=== PATIENT | female | born 1995 | race Caucasian/White ===

== ENCOUNTER 2023-03-13 15:36 | Observation (INO) | payer OTHER, SELFPAY ==
--- NOTE | 2023-03-13 16:27 | P.HPOB_ITS ---
OB HPI Date/Time Date of admission: 03/13/23 Date Patient Seen: 03/13/23 Time Patient Seen: 16:00 History of Present Condition Chief complaint: OB CHECK : 1 Para: 0 Estimated Date of Delivery: 03/22/23 Estimated Gestational Age (weeks): 38w5d Narrative: Janny Zafar is a , 28 year old female at 38w5d by 2 early ultrasounds. She reported PROM, clear fluid at 0520 today. Contractions started at 1315 and she called shortly before 1500 to report that they were q 5 min x 60 seconds. She is here today accompanied by her teacher specialist. Her mom is on her way up from [place], and her is deployed, hoping he'll arrive by Monday AM. Janny reports that contractions are getting more intense. Well supported by her teacher specialistMarley. Reports that fluid is copious and continues to be clear. Indications Other reason(s) for admission: PROM History of Present care: good care, initiated at week # (7), number of visits (14) and pounds weight gain (47) Dating criteria: based on 1st trimester US only (2 1st trimester ultrasound confirmed GARCIA) Ultrasounds: normal 1st trimester US and normal mid trimester US Obstetrical complications: none Medical complications: none Preadmission Labs Blood type: 0 (-) negative -: Antibody screen: negative, Cystic fibrosis screen: negative, GBS status: negative, HBsAG: negative, HIV: negative and RPR/VDLR: negative -: Chlamydia screen: not detected and Gonorrhea screen: not detected -: Rubella: immune and Varicella: immune HCT: 32.2 HCAB: negative PAP: Normal (01/2022) Quad screen: Normal Cell-free DNA: Negative 1 hr GTT: 117 Prior (ies) History: no prior pregnancies Evaluation Evaluation Baseline heart rate: 150 Variability: Moderate (11-25) monitor accelerations: Present Monitor Decelerations: Absent Contraction Frequency (minutes): 2 (coupling with breaks up to 5 minutes) Uterine Contraction Intensity: Moderate Category of Tracing: Reactive Dilation (cm): 2 Effacement (%): 70 Dilation: 1-2 cm Effacement: 60-70% station: -2 Position of cervix: anterior Consistency: soft Fu score: 8 Non-invasive Membranes Rupture Test: positive Comments: Grossly ruptured and nitrazine positive in [facility] [place] 03/13/23 AM. PFSH Medical History (Updated 03/13/23 @ 16:49 by Tanya Bowens CNM, ARNP) Depression with anxiety Surgical History (Updated 03/13/23 @ 16:49 by Tanya Bowens CNM, [place]) H/O bilateral breast reduction surgery Family History (Updated 03/13/23 @ 17:48 by Tanya Bowens CNM, ARNP) Mother Cancer Depression Grandfather Cancer Father Heart disease Grandmother Depression Social History (Updated 03/13/23 @ 17:50 by Tanya Bowens CNM, [place]) marital status: details: is [employer] number of children: 0 household members: spouse lives independently: Yes caregiver/support person: No education level: master's degree 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[employer] Smoking Status: Never smoker alcohol intake: former substance use type: does not use additional social history: Reports that she feels safe with her Meds Home Medications and Allergies Allergies Allergy/AdvReac Type Severity Reaction Status Date / Time seasonal allergies Allergy Mild Uncoded 03/13/23 17:51 [email or web address] Allergy Uncoded 03/13/23 17:51 Review of Systems Review of Systems Narrative: all negative except as mentioned in HPI OB Exam Vital signs Blood Pressure: 117/67 Pulse Rate: 55 Respiratory Rate: 18 Temperature: 36.8 F HENMT Head: normal to inspection and normocephalic Eyes General: appearance normal, both eyes and all related structures Resp Effort & Inspection: normal respiratory effort, able to speak in complete sentences and symmetric chest movement Auscultation: clear to auscultation bilaterally Cardio Rate: regular rate Rhythm: regular rhythm Heart Sounds: S1 normal and S2 normal Extremities Lower extremity: Yes normal to inspection DTR's: Rt Patellar: 1+ and Lt Patellar: 1+ Presentation: vertex Estimated Weight (lbs): 7 Amniotic Fluid: clear Other: SCE: 2/70/-2/posterior/soft Assessment and Plan Assessment and Plan Assessment and Plan narrative: at 38w5d Early labor GBS negative PROM x 12hrs Rh negative NST reactive Hx of breast reduction Afebrile Plan: Labor at home with teacher specialist and mother until contractions are more regular and intense then return to hospital Pain medication offered and accepted. Morphine 10 mg and vistaril 50 mg given together IM. Discharge home for sleep and RTC tonight with active labor. Time Spent with Patient Total time spent with greater than 50% in coordination of care (as documented) at patient's floor/unit and/or counseling patient:: Greater than 35 minutes
[2023-03-13 18:00] VITALS: BP 117/67; PULSE 55; RESP 18; TEMP 2.7; TEMP 36.8
[2023-03-13] MEDS: hydrOXYzine 50 MG/ML INJ IM (18:41)
[2023-03-13] MEDS: MORPHINE 10 MG/ML INJ IM (18:41)
== END 2023-03-13 19:05 | disposition home or self-care (01) ==
PROVIDERS: Admitting Provider Nurse Practitioner Obstetrics & Gynecology; Referring Provider Advanced Practice Midwife; Visit Provider Advanced Practice Midwife
DX: O42.92 Full-term premature rupture of membranes, unspecified as to length of time between rupture and onset of labor (principal); Z3A.38 38 weeks gestation of pregnancy
CPT/HCPCS: 59025; 96372; G0378; G0379; J2270; J3410

== ENCOUNTER 2023-03-13 21:40 | Inpatient (IN) | payer OTHER, SELFPAY ==
--- NOTE | 2023-03-13 22:06 | PM.OBHP.IH.1 ---
OB HPI History of Present Condition Chief complaint: Estimated Gestational Age (weeks): 38w5d : 1 Para: 0 Narrative: History of Present Condition Chief complaint: OB CHECK : 1 Para: 0 Estimated Date of Delivery: 03/22/23 Estimated Gestational Age (weeks): 38w5d Narrative: Janny Zafar is a , 28 year old female at 38w5d by 2 early ultrasounds. She reported PROM, clear fluid at 0520 today. Contractions started at 1315 and she called shortly before 1500 to report that they were q 5 min x 60 seconds.? She arrived at the hospital for triage at 16:00 accompanied by her galley stripper. Reported that fluid was copious and continues to be clear. Her mom arrived shortly after. Her is deployed, hoping he'll arrive by Monday AM. Janny is back after going home with Morphine and hydroxyzine, was unable to sleep but got some rest. Reports that contractions are getting more intense, having to concentrate and vocalize to cope, requesting epidural. She feels like she has to pee all the time, but nothing comes out. Well supported by her mother. Her galley stripper, Marley, is on her way. Indications Other reason(s) for admission: PROM care: good care, initiated at week # (7), number of visits (14) and pounds weight gain (47) Dating criteria OB: based on 1st trimester US only Ultrasounds: normal 1st trimester US and normal mid trimester US Obstetrical complications: none Medical complications OB: none External History Prior Pregnancies: No prior pregnancies : 1 Para: 0 Estimated Date of Delivery: 03/22/23 Indications Other reason(s) for admission: PROM with spontaneous labor Preadmission Labs Last OB Lab Results: Blood Type Pending 03/13/23 22:00 Antibody Screen Pending 03/13/23 22:00 Hematocrit 30.8 % (36-46) L 03/13/23 22:00 Hemoglobin 10.4 g/dL (12.0-16.0) L 03/13/23 22:00 Glucose Tolerance Testin hr (117) -: Chlamydia screen: negative and Gonorrhea screen: negative -: PAP smear: Normal Genetic Screens: Quad screen: Normal and Cell-free DNA: Normal External Labs Narrative: Preadmission Labs Blood type: 0 (-) negative -: Antibody screen: negative, Cystic fibrosis screen: negative, GBS status: negative, HBsAG: negative, HIV: negative and RPR/VDLR: negative -: Chlamydia screen: not detected and Gonorrhea screen: not detected -: Rubella: immune and Varicella: immune HCT: 32.2 HCAB: negative PAP: Normal (01/2022) Quad screen: Normal Cell-free DNA: Negative 1 hr GTT: 117 Evaluation Evaluation Baseline heart rate: 135 Variability: Moderate (11-25) monitor accelerations: Absent Monitor Decelerations: Variable Uterine Contraction Intensity: Moderate Status: Category l Dilation (cm): 7 Effacement (%): 90 Dilation: >/=5 cm Effacement: >/=80% station: -1 Position of cervix: mid Consistency: soft Fu score: 11 PFSH Medical History (Updated 03/13/23 @ 16:49 by Tanya Bowens CNM, [place]) Depression with anxiety Surgical History H/O bilateral breast reduction surgery Family History Mother Cancer Depression Grandfather Cancer Father Heart disease Grandmother Depression Social History marital status: details: is [employer] number of children: 0 household members: spouse lives independently: Yes caregiver/support person: No education level: master's degree occupational status: 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: [employer] Smoking Status: Never smoker alcohol intake: former substance use type: does not use additional social history: Reports that she feels safe with her Meds Home Medications and Allergies Allergies Allergy/AdvReac Type Severity Reaction Status Date / Time seasonal allergies Allergy Mild Uncoded 03/13/23 17:51 [email or web address] Allergy Uncoded 03/13/23 17:51 Review of Systems Review of Systems Narrative: negative accept what was mentioned above OB Exam Vital signs Blood Pressure: 123/77 Pulse Rate: 85 Respiratory Rate: 18 Temperature: 97.9 F Objective Labs 03/13/23 22:00 Assessment and Plan Assessment and Plan Assessment and Plan narrative: Gestation 38w5d PROM with spontaneous labor Active labor pattern GBS negative Rh negative Coping well Plan: Admit to labor and delivery Admit labs Epidural LILIA Continuous EFM with epidural Cervical exam after comfortable with epidural Support normal course of labor with comfort measure and position changes Anticipate NSVB
[2023-03-13] MEDS: FENT 2MCG/ML BUPIV 0.125% EPI 200 MCG/100 ML PLAST..BAG 12 MCG EPIDURAL (22:08)
[2023-03-13 22:22] LABS: Add Manual Diff / Slide Review NO; Basophils Absolute Auto 100 /uL (0-100); Basophils Percent Auto 0.7 % (0-2); Eosinophils Absolute Auto 0 /uL (0-450); Hematocrit 30.8 % (36-46); Hemoglobin 10.4 g/dL (12.0-16.0); Lymphocytes Absolute Auto 1200 /uL (1100-4500); Lymphocytes Percent Auto 7.2 % (25-40); Mean Corpuscular HGB Conc 33.8 % (30-36); Mean Corpuscular Hemoglobin 27.7 PG (26-34); Mean Corpuscular Volume 81.8 fL (80-100); Monocytes Absolute Auto 700 /uL (0-900); Neutrophils Absolute Auto 14500 /uL (1500-7000); Neutrophils Percent Auto 88.1 % (50-75); Platelet Count 209 X10^3/uL (150-400); Red Blood Cell Count 3.77 X10^6/uL (4.0-5.2); Red Cell Distribution Width 13.8 % (11.6-14.8); White Blood Cell Count 16.5 X10^3/uL (4.5-11.0)
[2023-03-13 22:39] VITALS: BP 123/77; PULSE 85; RESP 18; TEMP 36.6
[2023-03-13] MEDS: ePHEDrine 50 MG/ML VIAL 10 MG IV (23:01)
[2023-03-14] MEDS: ONDANSETRON 4 MG/2 ML INJ IV (02:11)
[2023-03-14] MEDS: FENT 2MCG/ML BUPIV 0.125% EPI 200 MCG/100 ML PLAST..BAG 12 MCG EPIDURAL ×2 (03:25→08:11)
--- NOTE | 2023-03-14 04:29 | PM.OBPNLAB ---
Date/Time Date Patient Seen: 03/14/23 Time Patient Seen: 04:00 Pain Control Pain control: epidural Comments: Janny was able to get some sleep. Feeling more numb on her right side. Comfortable, able to sleep, vaginal/rectal pressure building Pelvic Exam Dilation (cm): 9.5 Effacement (%): 90 station: -1 Amniotic membrane status: Ruptured Contractions Date/Time contractions began: 03/13/23 at 1330 Contractions on admission: regular Monitor mode: External Contraction frequency (min): 2 Contraction duration (min): 1 Contraction pattern: Regular Contraction intensity: Moderate Status status: Category l Heart Rate Baseline: 150 Monitor Accelerations: Present Monitor Decelerations: Variable Monitor Variability: Moderate Assessment and Plan Assessment: active labor Plan: continuous present management Comments: 38w6d Active labor Pain well managed FHR: Cat I Moved to hands and knees SCE as needed Labor down PRN Anticipate
--- NOTE | 2023-03-14 05:50 | PM.OBPNLAB ---
Date/Time Date Patient Seen: 03/14/23 Time Patient Seen: 05:51 Pain Control Pain control: epidural Comments: Temp 99.1 oral and 100.9 axillary Patient feels hot to touch on skin and during SCE BP 100/56 SpO2 100% Pelvic Exam Dilation (cm): 9.5 Effacement (%): 90 station: -1 Amniotic membrane status: Ruptured Comments: Urine brandi colored Contractions Date/Time contractions began: 03/13/23 1315 [id number] PROM at 0520, clear fluid Monitor mode: External Contraction frequency (min): 2 Contraction pattern: Regular Contraction intensity: Moderate Status status: Category l Heart Rate Baseline: 185 Monitor Accelerations: Present Monitor Decelerations: Absent Monitor Variability: Moderate Assessment and Plan Assessment: active labor Plan: other Comments: at 38w6d PROM x 24 hours, clear fluid Elevated temperature FHR Cat 2 GBS neg Plan: CBC with diff ordered to do STAT Wait 30 min and repeat temp both axillary and oral If still elevated, and WBC elevated, start antibiotics and acetaminophen Position changes and fluid bolus
[2023-03-14 05:59] LABS: Add Manual Diff / Slide Review NO; Basophils Absolute Auto 100 /uL (0-100); Basophils Percent Auto 0.7 % (0-2); Eosinophils Absolute Auto 0 /uL (0-450); Eosinophils Percent Auto 0.1 % (2-4); Hematocrit 26.7 % (36-46); Hemoglobin 8.8 g/dL (12.0-16.0); Lymphocytes Absolute Auto 1300 /uL (1100-4500); Lymphocytes Percent Auto 8.1 % (25-40); Mean Corpuscular HGB Conc 32.9 % (30-36); Mean Corpuscular Hemoglobin 27.5 PG (26-34); Mean Corpuscular Volume 83.5 fL (80-100); Monocytes Absolute Auto 1200 /uL (0-900); Neutrophils Absolute Auto 13800 /uL (1500-7000); Neutrophils Percent Auto 84.1 % (50-75); Platelet Count 180 X10^3/uL (150-400); Red Cell Distribution Width 13.8 % (11.6-14.8); White Blood Cell Count 16.4 X10^3/uL (4.5-11.0)
[2023-03-14] MEDS: ACETAMINOPHEN IV 1,000 MG/100 ML VIAL 400 MG IV (06:29)
--- NOTE | 2023-03-14 06:45 | PM.OBPNLAB ---
Date/Time Date Patient Seen: 03/14/23 Time Patient Seen: 06:45 Pain Control Comments: Epidural not working as well; feeling more L sided pain now. Pelvic Exam Effacement (%): 90 station: -1 Amniotic membrane status: Ruptured Comments: Labs: WBC on admission 16 and repeated at 0550 16. When compared to WBC, these are elevated. Contractions Monitor mode: External Contraction frequency (min): 2 Contraction pattern: Regular Contraction intensity: Moderate Status status: Category l Heart Rate Baseline: 160 Monitor Accelerations: Present Monitor Decelerations: Absent Monitor Variability: Moderate Assessment and Plan Assessment: active labor Plan: begin patient augmentation Comments: at 38w6d in active labor Intraamnionic infection GBS neg Plan: Begin low dose pitocin Start antibiotics to treat IAI after discussion with patient of r/b/a Epidural bolus Recheck cervix PRN.
[2023-03-14 06:56] VITALS: BP 124/85
[2023-03-14] MEDS: AMPICILLIN 2,000 MG in SODIUM CHLORIDE 0.9% 100 ML 200 MG IV (07:19)
[2023-03-14] MEDS: GENTAMICIN 150 MG in SODIUM CHLORIDE 0.9% 100 ML 103.75 MG IV (08:08)
[2023-03-14] MEDS: OXYTOCIN PREMIX 30 UNIT/500 ML PLAST..BAG IV (08:34)
--- NOTE | 2023-03-14 09:38 | PM.OBPNLAB ---
Date/Time Date Patient Seen: 03/14/23 Time Patient Seen: 09:00 Pain Control Pain control: epidural Comments: Comfortable with epidural. Antibiotics for IAI completed approx 0900 (amp completed approx 0800, gent approx 0900). Pelvic Exam Dilation (cm): 9 Effacement (%): 90 station: -1 Amniotic membrane status: Ruptured Comments: Maternal vital signs: BP 92/53 HR 67 SpO2 93 Contractions Monitor mode: External Pitocin rate (mU/min): 4 Contraction frequency (min): 2 Contraction duration (min): 1 Contraction pattern: Regular Contraction intensity: Moderate Status status: Category ll Heart Rate Baseline: 140 Monitor Accelerations: Present Monitor Decelerations: Prolonged Monitor Variability: Moderate Comments: Acceleration at 0904 during exam led to 3.5 min deceleration that started at 0906 with yariel of 60 before returning to >100 and then back to baseline at 0915. Moderate variability and accelerations from 0915 until 0936 when FHR returned to 145 baseline. Variability > 5 beats per minute. Assessment and Plan Assessment: other Comments: Assessment: at 38w6d Prolonged active phase of labor IAI GBS neg O negative blood type Plan: Position changes and fluid bolus with deceleration Continue pitocin titration as tolerated IUPC applied to monitor contractions Recheck cervix PRN
[2023-03-14] MEDS: fentaNYL 100 MCG/2 ML INJ (12:55)
[2023-03-14] MEDS: METHYLERGONOVINE 0.2 MG/ML VIAL IM (13:05)
--- NOTE | 2023-03-14 13:35 | P.PCNOB_ITS ---
Labor & Delivery Route of delivery: L&D Laceration Description: Perineal - 1st Degree Quantitative Blood Loss: 725 Anesthesia Type: Epidural Narrative: Janny Zafar is a G1 now P1, 28 year old female at 38w6d by 2 early ultrasounds. She reported PROM, clear fluid at 0520 03/13/23. Contractions started at 1315 and she called shortly before 1500 to report that they were q 5 min x 60 seconds.?Her labor was assessed, she was sent home to rest with morphine and hydroxyzine. Admitted for labor 03/13/23 at 22:00 with request for epidural analgesic, which was placed at 23:00. Well supported by her can reconditioner, Marley, and her mother Macey. Her is deployed, hoping he'll arrive this evening. Labor progressed well until anterior lip was present and IAI diagnosed and treated with antibiotics. Complete dilation was achieved with position changes, pitocin augmentation and manual reduction of anterior lip. Janny felt lots of pressure and began pushing on her own at 10:00 and started to push effectively with coaching at 10:30 for an average 2nd stage. FHR was Cat II throughout 2nd stage. NSVB of baby at 12:15, shoulders delivered with firm traction through a single loose nuchal cord. Baby was placed on maternal abdomen when Janny was pawan dy to receive him skin to skin, W/D/S for resuscitation. Apgars 4/8/9. 3 vessel cord clamped and cut by luca at 90 seconds and baby taken to warmer for assessment of respiratory effort. Bulb suction, blow by oxygen and W/D/S was utilized. Cord blood collected for blood typing. Baby returned to maternal chest, skin to skin, after five minutes with good oxygenation and tone and no increased WOB. Placenta did not deliver spontaneously after 30 minutes, strong maternal effort, and active management. Her epidural was turned back on, 100mg of Fentaynl was administered, and the placenta was manually extracted by CNM at 50min and appeared to be intact with succenturiate lobe. Antibiotics not given for manual extraction of placenta d/t antibiotics previously administered 4 hours prior for IAI. Fundus firm, midline at U. Perineum inspected and 1st degree laceration was assessed, hemostatic and well approximated, no need for repair. Blood loss measured is 725 mL. Mom and baby left stable and was being initiated. Janny and grandma Macey are thrilled to meet the baby. Tanya WOOD CNM, IBCLC Ciarra Jones, RN, SNM Baby 1: Infant gender: Male Presentation: vertex Position: Right Occiput Anterior Placenta delivery description: Manual Removal Cord Vessel Description: 3 Vessels, Nuchal Cord and Loose score (1 min): 4 score (5 min): 8 score (10 min): 9 Narrative: Resuscitation information, see above Plan for aftercare: Routine care
[2023-03-14] MEDS: KETOROLAC 30 MG/ML VIAL IV ×2 (16:25→22:11)
[2023-03-14] MEDS: ACETAMINOPHEN 325 MG TABLET 975 MG PO (22:11)
[2023-03-14] MEDS: DERMOPLAST SPRAY 20% 60 ML 1 SPRAY TOP (22:11)
[2023-03-15] MEDS: KETOROLAC 30 MG/ML VIAL IV (04:16)
[2023-03-15] MEDS: ACETAMINOPHEN 325 MG TABLET 975 MG PO (06:17)
[2023-03-15 06:25] LABS: Add Manual Diff / Slide Review NO; Basophils Absolute Auto 100 /uL (0-100); Basophils Percent Auto 0.5 % (0-2); Eosinophils Absolute Auto 100 /uL (0-450); Eosinophils Percent Auto 0.5 % (2-4); Hematocrit 23.7 % (36-46); Hemoglobin 8.1 g/dL (12.0-16.0); Lymphocytes Absolute Auto 1500 /uL (1100-4500); Mean Corpuscular HGB Conc 34.1 % (30-36); Mean Corpuscular Hemoglobin 28.1 PG (26-34); Mean Corpuscular Volume 82.5 fL (80-100); Monocytes Absolute Auto 1000 /uL (0-900); Neutrophils Absolute Auto 11000 /uL (1500-7000); Platelet Count 177 X10^3/uL (150-400); Red Blood Cell Count 2.87 X10^6/uL (4.0-5.2); Red Cell Distribution Width 14.1 % (11.6-14.8); White Blood Cell Count 13.6 X10^3/uL (4.5-11.0)
--- NOTE | 2023-03-15 09:30 | PM.OBDS.1 ---
Discharge Providers Provider Date of admission: 03/13/23 21:40 Discharge Date: 03/15/23 Primary care physician: Fernanda Consults: 03/15/23 13:27 Consult to Senior Medical Transcriptionist Routine Comment: Discharge provider: Avani De Jesus CNM Summary Hospital Course Date Patient Seen: 03/15/23 Time Patient Seen: 09:30 Diagnoses: O70.0, O41.1230, O73.0, O90.81 Hospital Course: PPD1: Stable s/p SVB with retained placenta and 1st degree perineal laceration. Voiding, ambulating and independently. Tolerating a general diet. Pain is minimal and well controlled with PO medication. made it in last night and is present and supportive. they are both feeling ready for discharge to home today. Peripartum Data Infant Delivery Method: Natural Vaginal Laceration Description: Perineal - 1st Degree Episiotomy description: None Procedures: O70.0, O73.0 complications: other (anemia, necessitating an iron infusion) 1: Gender: Male Disposition of : home Discharge Diagnosis (1) First degree perineal laceration during delivery: Status: Acute Problem Details: routine course (2) Retained placenta without hemorrhage: Status: Acute Problem Details: resolved w/ antibiotics administered prior to the (3) Anemia of the puerperium: Status: Acute Problem Details: IV Fe prior to discharge Status at Discharge Cognitive/behavioral status at discharge: oriented and calm Functional status at discharge: independent ambulation Overall status at discharge: patient is progressing back to baseline Time Spent with Patient Time attestation: Total time spent providing and/or coordinating discharge services: Objective Labs 03/15/23 06:13 Labs: Laboratory Results - last 24 hr 03/15/23 03/15/23 06:13 06:13 WBC 13.6 H RBC 2.87 L Hgb 8.1 L Hct 23.7 L MCV 82.5 MCH 28.1 MCHC 34.1 RDW 14.1 Plt Count 177 Neut % (Auto) 81.0 H Lymph % (Auto) 11.0 L Toole % (Auto) 7.0 Eos % (Auto) 0.5 L Baso % (Auto) 0.5 Neut # (Auto) 26078 H Lymph # (Auto) 1500 Toole # (Auto) 1000 H Eos # (Auto) 100 Baso # (Auto) 100 Maternal Bleed Negative Exam Vital Signs (past 8 hours): BP 117/64mmHg, HR 63bpm, RR 18/min, T 97.8F termpoal Other: Fundus firm @ U, lochia scant. Perineum well approximated Discharge Plan Discharge Plan Patient Disposition: Home Provider Discharge Comment: 1-2 hours after IV Fe infusion is complete Discharge orders & Medications Prescriptions: New ibuprofen 600 mg Tablet 600 mg PO Q6HR PRN (Reason: Pain, Mild (1-3)) 14 Days Qty: 60 0RF ferrous sulfate 325 mg (65 mg iron) tablet 325 mg PO DAILY 60 Days Qty: 60 0RF No Action No Known Home Medications Follow up/Referrals: Avani De Jesus CNM [Advanced Assistant Production Editor] - (03/29/23 @ 2pm- 2wk PP follow-up 04/25/23 @ 1:30pm- 6wk PP follow-up) Diet/Activity/Treatments Diet: Diet as Tolerated and Regular Activity: pelvic rest x 6 weeks Skin/Wound/Dressing Care Report to your healthcare provider any signs of infection, such as:: chills, fever, increased pain, unusual drainage and unusual redness Visit Report/Discharge Packet Instructions: Depression Stand Alone Forms: Discharge: Care, Patient Portal/API, Stroke Signs & Symptoms
[2023-03-15] MEDS: IRON SUCROSE 200 MG in SODIUM CHLORIDE 0.9% 100 ML 220 MG IV (10:06)
[2023-03-15] MEDS: IBUPROFEN 600 MG TABLET PO (10:07)
[2023-03-15 11:02] VITALS: BP 117/64; PULSE 63; RESP 17; TEMP 36.6
[2023-03-15] MEDS: RHO(D) IMMUNE GLOBULIN 1,500 UNIT SYRINGE 1500 UNIT IM (11:25)
== END 2023-03-15 12:55 | disposition home or self-care (01) | DRG 807 ==
PROVIDERS: Admitting Provider Advanced Practice Midwife; Referring Provider Advanced Practice Midwife; Visit Provider Advanced Practice Midwife
DX: O42.12 Full-term premature rupture of membranes, onset of labor more than 24 hours following rupture (principal); Z37.0 Single live birth; O73.0 Retained placenta without hemorrhage; O90.81 Anemia of the puerperium; D50.0 Iron deficiency anemia secondary to blood loss (chronic); O76 Abnormality in fetal heart rate and rhythm complicating labor and delivery; O42.92 Full-term premature rupture of membranes, unspecified as to length of time between rupture and onset of labor; Z3A.38 38 weeks gestation of pregnancy
CPT/HCPCS: 36415; 59025; 59050; 85025; 85461; 86850; 86900; 86901; 96372; G0378; G0379; J0131; J0290; J1756; J1885; J2210; J2270; J2405; J2590; J2790; J3010; J3410

== ENCOUNTER 2023-05-02 20:25 | Inpatient (IN) | payer OTHER, SELFPAY ==
--- NOTE | 2023-05-02 20:28 | DI.US.S_ITS ---
PROCEDURE: US PELVIC COMPLETE INDICATIONS: FEVER/PLACENTA MANUALLY DETACHED DURING DELIVERY 7 WEEKS AGO TECHNIQUE: Real-time scanning was performed of the pelvic organs, with image documentation. Additional endovaginal scanning was necessary due to incomplete visualization of the adnexal and endometrial structures by transabdominal scanning. COMPARISON: None. FINDINGS: Uterus: Uterus is retroverted and measures 8.1 x 7.4 x 4.3 cm. The endometrium is thickened, measuring up to 1.5 cm with internal heterogeneity and vascularity likely representing retained products of conception. Ovaries: The right ovary measures 3.9 x 2.4 x 1.3 cm, with a calculated ovarian volume of 6.1 cc. The left ovary measures 3.7 x 2.3 x 1.4 cm, with a calculated ovarian volume of 6.4 cc. The ovaries have a normal sonographic appearance. Less than 12 follicles can be seen in each ovary. No adnexal masses are seen. Other: No pathologic free abdominal or pelvic fluid. IMPRESSION: 1. Thickened heterogeneous endometrium with internal vascularity likely representing retained products of conception. We strive to produce accurate, complete, and clear reports of imaging services. To assist us in improving patient care, this report was composed using standard report templates and voice recognition software. Therefore, it may contain abnormal punctuation, insertions and/or omissions. Occasional wrong-word or sound-alike substitutions may occur. Though we review the report and make efforts to correct it, we do recommend that the report be read carefully in proper context to recognize any text inaccuracies. Dictated by: Vadim Méndez M.D. on 05/02/2023 at 22:36 Approved by: Vadim Méndez M.D. on 05/02/2023 at 22:39
[2023-05-02 20:31] VITALS: BP 110/64; PULSE 104; RESP 16; TEMP 37; O2SAT 96; BMI 25.0
[2023-05-02 20:58] VITALS: BMI 25.0
[2023-05-02] MEDS: SODIUM CHLORIDE 0.9% 1,000 ML 1000 ML IV (21:00)
[2023-05-02 21:23] LABS: Add Manual Diff / Slide Review NO; Basophils Absolute Auto 100 /uL (0-100); Basophils Percent Auto 0.3 % (0-2); Eosinophils Absolute Auto 0 /uL (0-450); Eosinophils Percent Auto 0.1 % (2-4); Hematocrit 35.8 % (36-46); Hemoglobin 12.1 g/dL (12.0-16.0); Lymphocytes Absolute Auto 900 /uL (1100-4500); Lymphocytes Percent Auto 5.1 % (25-40); Mean Corpuscular HGB Conc 33.7 % (30-36); Mean Corpuscular Volume 80.1 fL (80-100); Monocytes Absolute Auto 900 /uL (0-900); Monocytes Percent Auto 5.5 % (3-14); Neutrophils Absolute Auto 15200 /uL (1500-7000); Platelet Count 351 X10^3/uL (150-400); Red Blood Cell Count 4.47 X10^6/uL (4.0-5.2); Red Cell Distribution Width 15.1 % (11.6-14.8)
[2023-05-02 21:30] LABS: INR 1.2 (0.9-1.3); Prothrombin Time 13.3 SECONDS (10.1-12.7)
[2023-05-02 21:33] LABS: PTT Partial Thromboplastin Tim 37 SECONDS (26-36)
[2023-05-02 21:36] LABS: Alanine Aminotransferase 21 IU/L (<35); Albumin 5.1 g/dL (3.5-5.0); Albumin Globulin Ratio 1.5 (1.0-2.8); Alkaline Phosphatase 107 U/L (38-126); Aspartate Aminotransferase 26 IU/L (14-36); BUN Creatinine Ratio 10.6 (6-22); Bilirubin Total 0.5 mg/dL (0.2-1.3); Blood Urea Nitrogen 7 mg/dL (7-17); Calcium 9.2 mg/dL (8.4-10.2); Carbon Dioxide 24 mmol/L (22-32); Chloride 101 mmol/L (98-107); Estimated Glomerular Filt Rate > 60 mL/min (>60); Globulin 3.3 g/dL (1.7-4.1); Glucose 109 mg/dL (70-100); Lipase 65 U/L (23-300); Potassium 3.9 mmol/L (3.4-5.1); Sodium 137 mmol/L (137-145); Total Protein 8.4 g/dL (6.3-8.2)
[2023-05-02 21:46] LABS: Appearance Urine UA CLEAR; Bilirubin Urine UA NEGATIVE (NEGATIVE); Color Urine UA YELLOW; Glucose Urine UA NEGATIVE (Negative); Ketones Urine UA NEGATIVE (NEGATIVE); Leukocyte Esterase Urine UA 1+ (NEGATIVE); Nitrite Urine UA NEGATIVE (Negative); Occult Blood Urine UA 3+ (Negative); Protein Urine UA NEGATIVE (Negative); Specific Gravity Urine UA <=1.005 (1.000-1.035); Urobilinogen Urine UA 0.2 E.U./dL (0.2)
[2023-05-02 21:53] LABS: HEMOLYSIS < 15 (0-50); Procalcitonin 0.05 ng/mL (<0.5)
[2023-05-02 22:29] LABS: RBC Urine None Seen (0-5/HPF)
[2023-05-02 22:30] LABS: Bacteria Urine Occasional (0-1); Culture Indicated Urine Specimen Cultured; Squamous Epithelial Cell Urine 0-1 /HPF (0-5/HPF); WBC Urine 1-5/HPF (0-5/HPF)
--- NOTE | 2023-05-02 22:48 | ED.PREGNANCY ---
HPI - General Chief complaint: Vaginal Bleeding Stated complaint: Fever 102.5. Vaginal bleeding. gave 7 weeks Time Seen by Provider: 05/02/23 22:48 Source: patient Mode of arrival: Ambulatory Limitations: no limitations History of Present Illness HPI Narrative: This is a 28-year-old healthy female who is 7 weeks who had a manual extraction for retained placenta at delivery. Patient states she is had persistent bleeding for the past 7 weeks sometimes spotting but the 1st 5 weeks she was using an overnight pads regularly has become a little bit less over time. She is never stopped having any bleeding. She states she developed chills fever 102.5 F today generally felt unwell with nausea. No vomiting. No cold cough or congestion. Patient denies any chest pain or shortness of breath. Had nausea but no vomiting today. No diarrhea or constipation, no dysuria, urgency or frequency. Patient states she is had a little bit of cramping abdominal. She noticed a little bit depressed tenderness but no redness or skin changes and states that is happened once or twice on either side. She is actively . She is not had any discharge. Denies any daily medications. No surgeries. No known drug allergies. No tobacco, alcohol or illicit. 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 Related Data Previous Rx's Medication Instructions Recorded ferrous sulfate 325 mg (65 mg 325 mg PO DAILY 60 days #60 tabs 03/15/23 iron) tablet Allergies Allergy/AdvReac Type Severity Reaction Status Date / Time No Known Drug Allergies Allergy Verified 03/14/23 06:41 Review of Systems Review of Systems ROS Unobtainable: All systems reviewed & are unremarkable except as noted in HPI and below Exam Narrative Exam Narrative: GENERAL: Alert and oriented x three, well-nourished female in mild distress. HEENT: Head normocephalic, atraumatic, EOMI, pupils reactive, face symmetric, moist mucous membranes NECK: Supple, full range of motion CARDIOVASCULAR: Regular rate and rhythm without murmurs, rubs or gallops. RESPIRATORY: Breath sounds equal bilaterally, no wheezes rales or rhonchi. ABDOMEN: Soft, nontender. Normoactive bowel sounds all 4 quadrants. No guarding or rebound, rigidity, no mass : No CVA tenderness EXTREMITIES: Normal range of motion, no clubbing or edema. Neurovascularly intact NEUROLOGICAL: Cranial nerves II through XII grossly intact. Moving all extremities SKIN: Warm, dry, no petechiae, no rashes or lesions. Breast exam patient is nontender. No warmth, lumps or other changes. Initial Vital Signs Initial Vital Signs: Vital Signs Temperature 98.6 F 05/02/23 20:31 Pulse Rate 104 H 05/02/23 20:31 Respiratory Rate 16 05/02/23 20:31 Blood Pressure 110/64 05/02/23 20:31 Pulse Oximetry 96 05/02/23 20:31 Oxygen Delivery Method Room Air 05/02/23 20:31 Course Orders Ordered: ED Orders 05/02/23 20:28 US pelvic complete Stat 05/02/23 21:05 Complete Blood Count AUTO DIFF Stat Comprehensive Metabolic Panel Stat Lactate (Lactic Acid) Stat Lipase Stat PTT Partial Thromboplastin Esequiel Stat Procalcitonin Stat Prothrombin Time INR Stat 05/02/23 21:20 UA Complete [Urinalysis and Microscopic] Stat Urine Culture Stat 05/02/23 21:55 Blood Culture Stat Acetaminophen (Acetaminophen 325 Mg Tablet) 650 mg PO Q6H PRN PRN Reason: Fever/Mild Pain (1-3) Sodium Chloride (Normal Saline 0.9%) 1,000 mls @ 100 mls/hr IV CONT [facility] Last Admin: 05/03/23 00:41 Dose: 100 mls/hr Documented By: DEMETRIO Ampicillin Sodium/Sulbactam (Sodium 3 gm/ Sodium Chloride) 100 mls @ 200 mls/hr IV Q6H [facility] Last Admin: 05/03/23 04:53 Dose: 200 mls/hr Documented By: DEMETRIO Clindamycin Phosphate 900 mg/ (Sodium Chloride) 106 mls @ 106 mls/hr IV Q8H [facility] Last Infusion: 05/03/23 01:10 Dose: 0 mls/hr Documented By: Admin: 05/03/23 00:07 Dose: 106 mls/hr Documented By: DEMETRIO Ibuprofen (Ibuprofen 600 Mg Tablet) 600 mg PO Q6H PRN PRN Reason: Fever/Mild Pain (1-3) Last Admin: 05/03/23 00:39 Dose: 600 mg Documented By: DEMETRIO Naloxone HCl (Naloxone 0.4 Mg/Ml Vial) 0.2 mg IV Q2MIN PRN PRN Reason: Opiate Reversal Ondansetron HCl (Ondansetron 4 Mg Odt) 4 mg PO Q8HR PRN PRN Reason: Nausea And Vomiting Discontinued Medications Sodium Chloride (Normal Saline 0.9%) 1,000 mls @ 1,000 mls/hr IV BOLUS ONE Stop: 05/02/23 21:26 Last Infusion: 05/02/23 22:04 Dose: 0 mls/hr Documented By: Admin: 05/02/23 21:00 Dose: 1,000 mls/hr Documented By: Ampicillin Sodium/Sulbactam (Sodium 3 gm/ Sodium Chloride) 100 mls @ 200 mls/hr IV NOW ONE Stop: 05/02/23 22:50 Last Infusion: 05/02/23 23:39 Dose: 0 mls/hr Documented By: Admin: 05/02/23 23:04 Dose: 200 mls/hr Documented By: Gentamicin Sulfate 270 mg/ (Sodium Chloride) 106.75 mls @ 106.75 mls/hr IV NOW ONE Stop: 05/02/23 22:50 Last Admin: 05/03/23 00:41 Dose: Not Given Documented By: AGW Ondansetron HCl (Ondansetron 4 Mg/2 Ml Inj) 4 mg IV NOW PRN PRN Reason: Nausea And Vomiting Ondansetron HCl (Ondansetron 4 Mg Odt) 4 mg SL NOW PRN PRN Reason: Nausea And Vomiting Vital Signs Vital signs: Vital Signs - 8 hr 05/02/23 20:31 Temperature 98.6 F Pulse Rate 104 H Respiratory Rate 16 Blood Pressure 110/64 Pulse Oximetry 96 Oxygen Delivery Method Room Air MDM - OB/Uterine Contractions Lab Data 05/02/23 21:05 05/02/23 21:05 Labs: Lab Results 05/02/23 05/02/23 05/02/23 Range/Units 21:05 21:05 21:05 WBC 17.0 H (4.5-11.0) X10^3/uL RBC 4.47 (4.0-5.2) X10^6/uL Hgb 12.1 (12.0-16.0) g/dL Hct 35.8 L (36-46) % MCV 80.1 (80-100) fL MCH 27.0 (26-34) PG MCHC 33.7 (30-36) % RDW 15.1 H (11.6-14.8) % Plt Count 351 (150-400) X10^3/uL Neut % (Auto) 89.0 H (50-75) % Lymph % (Auto) 5.1 L (25-40) % Whitley % (Auto) 5.5 (3-14) % Eos % (Auto) 0.1 L (2-4) % Baso % (Auto) 0.3 (0-2) % Neut # (Auto) 08385 H (8206-6454) /uL Lymph # (Auto) 900 L (9145-9112) /uL Whitley # (Auto) 900 (0-900) /uL Eos # (Auto) 0 (0-450) /uL Baso # (Auto) 100 (0-100) /uL PT 13.3 H (10.1-12.7) SECONDS INR 1.2 (0.9-1.3) APTT 37 H (26-36) SECONDS Sodium 137 (137-145) mmol/L Potassium 3.9 (3.4-5.1) mmol/L Chloride 101 (98-107) mmol/L Carbon Dioxide 24 (22-32) mmol/L BUN 7 (7-17) mg/dL Creatinine 0.66 (0.52-1.04) mg/dL Estimated GFR > 60 (>60) mL/min BUN/Creatinine Ratio 10.6 (6-22) Glucose 109 H (70-100) mg/dL Lactate (0.7-2.1) mmol/L Calcium 9.2 (8.4-10.2) mg/dL Total Bilirubin 0.5 (0.2-1.3) mg/dL AST 26 (14-36) IU/L ALT 21 (<35) IU/L Alkaline Phosphatase 107 (38-126) U/L Total Protein 8.4 H (6.3-8.2) g/dL Albumin 5.1 H (3.5-5.0) g/dL Globulin 3.3 (1.7-4.1) g/dL Albumin/Globulin Ratio 1.5 (1.0-2.8) Lipase 65 (23-300) U/L Procalcitonin 0.05 (<0.5) ng/mL Urine Color Urine Appearance Urine pH (4.5-8.0) Ur Specific [place] (1.000-1.035) Urine Protein (Negative) Urine Glucose (UA) (Negative) g/dL Urine Ketones (NEGATIVE) Urine Occult Blood (Negative) Urine Nitrate (Negative) Urine Bilirubin (NEGATIVE) Urine Urobilinogen (0.2) E.U./dL Ur Leukocyte Esterase (NEGATIVE) Urine RBC (0-5/HPF) Urine WBC (0-5/HPF) Ur Squamous Epith Cells (0-5/HPF) Urine Bacteria (None) Ur Culture Indicated? 05/02/23 05/02/23 Range/Units 21:05 21:20 WBC (4.5-11.0) X10^3/uL RBC (4.0-5.2) X10^6/uL Hgb (12.0-16.0) g/dL Hct (36-46) % MCV (80-100) fL MCH (26-34) PG MCHC (30-36) % RDW (11.6-14.8) % Plt Count (150-400) X10^3/uL Neut % (Auto) (50-75) % Lymph % (Auto) (25-40) % Whitley % (Auto) (3-14) % Eos % (Auto) (2-4) % Baso % (Auto) (0-2) % Neut # (Auto) (0569-2458) /uL Lymph # (Auto) (9041-7172) /uL Whitley # (Auto) (0-900) /uL Eos # (Auto) (0-450) /uL Baso # (Auto) (0-100) /uL PT (10.1-12.7) SECONDS INR (0.9-1.3) APTT (26-36) SECONDS Sodium (137-145) mmol/L Potassium (3.4-5.1) mmol/L Chloride (98-107) mmol/L Carbon Dioxide (22-32) mmol/L BUN (7-17) mg/dL Creatinine (0.52-1.04) mg/dL Estimated GFR (>60) mL/min BUN/Creatinine Ratio (6-22) Glucose (70-100) mg/dL Lactate 1.0 (0.7-2.1) mmol/L Calcium (8.4-10.2) mg/dL Total Bilirubin (0.2-1.3) mg/dL AST (14-36) IU/L ALT (<35) IU/L Alkaline Phosphatase (38-126) U/L Total Protein (6.3-8.2) g/dL Albumin (3.5-5.0) g/dL Globulin (1.7-4.1) g/dL Albumin/Globulin Ratio (1.0-2.8) Lipase (23-300) U/L Procalcitonin (<0.5) ng/mL Urine Color Yellow Urine Appearance Clear Urine pH 6.0 (4.5-8.0) Ur Specific [place] <=1.005 (1.000-1.035) Urine Protein Negative (Negative) Urine Glucose (UA) Negative (Negative) g/dL Urine Ketones Negative (NEGATIVE) Urine Occult Blood 3+ H (Negative) Urine Nitrate Negative (Negative) Urine Bilirubin Negative (NEGATIVE) Urine Urobilinogen 0.2 (0.2) E.U./dL Ur Leukocyte Esterase 1+ H (NEGATIVE) Urine RBC None seen (0-5/HPF) Urine WBC 1-5/hpf (0-5/HPF) Ur Squamous Epith Cells 0-1 /hpf (0-5/HPF) Urine Bacteria Occasional (0-1) (None) Ur Culture Indicated? Specimen cultured Urine Dip Bedside Urine Glucose Negative Bedside Urine Bilirubin - Negative Bedside Urine Ketone - Negative Urine Specific [place] 1.000 Bedside Urine Occult Blood +++ Bedside Urine pH 6.0 Bedside Urine Protein - Negative Bedside Urine Urobilinogen 0.2 mg/dl Bedside Urine Nitrite - Negative Bedside Urine Leukocytes +/- 15 Esterase Imaging Data US - [employer]: Radiologist's Impression: Close Pelvis Ultrasound (Signed) Vadim Méndez - 05/02/23 Launch?[address] [address] Ultrasound Report Signed Patient: Janny Zafar MR#: [id number] : 1995 Acct:[id number] Age/Sex: 28 / F Date of Service: 05/02/23 Loc: ED Accession Number: [id number] ?? Procedure: US pelvic complete Ordering Provider: Helena Hein D.O. PROCEDURE:? US PELVIC COMPLETE ? INDICATIONS:? FEVER/PLACENTA MANUALLY DETACHED DURING DELIVERY 7 WEEKS AGO ? TECHNIQUE:? Real-time scanning was performed of the pelvic organs, with image documentation.? Additional endovaginal scanning was necessary due to incomplete visualization of the adnexal and endometrial structures by transabdominal scanning.? ? COMPARISON:? None. ? FINDINGS:? ?? Uterus:? Uterus is retroverted and measures 8.1 x 7.4 x 4.3 cm.? The endometrium is thickened, measuring up to 1.5 cm with internal heterogeneity and vascularity likely representing retained products of conception.? ? Ovaries:? The right ovary measures 3.9 x 2.4 x 1.3 cm, with a calculated ovarian volume of 6.1 cc. The left ovary measures 3.7 x 2.3 x 1.4 cm, with a calculated ovarian volume of 6.4 cc. The ovaries have a normal sonographic appearance. Less than 12 follicles can be seen in each ovary.? No adnexal masses are seen. ? Other:? No pathologic free abdominal or pelvic fluid. ? ? IMPRESSION:? ? 1. Thickened heterogeneous endometrium with internal vascularity likely representing retained products of conception.? ? ? We strive to produce accurate, complete, and clear reports of imaging services. To assist us in improving patient care, this report was composed using standard report templates and voice recognition software. Therefore, it may contain abnormal punctuation, insertions and/or omissions. Occasional wrong-word or sound-alike substitutions may occur. Though we review the report and make efforts to correct it, we do recommend that the report be read carefully in proper context to recognize any text inaccuracies. ? ? Dictated by: Vadim Méndez M.D. on 05/02/2023 at 22:36 ? ? Approved by: Vadim Méndez M.D. on 05/02/2023 at 22:39?? [facility] Narrative Medical decision making narrative: This is a 28-year-old 7 weeks with fevers, nausea, chills some pelvic cramping with persistent vaginal bleeding for the past 7 weeks. Patient had mild tachycardia with reported fever of 102.5 F at home. Patient is nontoxic appearing. Labs show white count of 17, leftward shift, X LFTs are negative with a glucose of 109. Patient's ultrasound shows thickened heterogeneous endometrium with internal vascularity like representing retained products of conception up to 1.5 cm. Patient covered with Unasyn and Gent, no other clear source is found. Patient is , reviewed with patient can still breastfeed with these medications.. Spoke with Dr. Vivar who is currently covering for Ob, she spoke with Dr. Terry, plan for admission, IV antibiotics with plan for D and C. did discuss her spouse is currently deployed, she has some friends locally but now she feels comfortable watching her child for the next several days she will reach out to her ombudsman for assistance in the short term. Discharge Plan Departure Patient Disposition: Admitted As Inpatient Clinical Impression: Endometritis, Retained products of conception after delivery with complications Admit Date/Time: 05/02/23 23:10 Admit Provider: Camelia Vivar
[2023-05-02] MEDS: AMPICILLIN/SULBACTAM 3 GM 3 GM in SODIUM CHLORIDE 0.9% 100 ML IV (23:04)
[2023-05-02 23:16] VITALS: BP 116/58; PULSE 86; RESP 16; O2SAT 100
[2023-05-02 23:45] VITALS: BP 126/70; PULSE 89; RESP 20; TEMP 37.3; O2SAT 100
[2023-05-02 23:53] VITALS: BMI 25.0
[2023-05-03] MEDS: CLINDAMYCIN 900 MG in SODIUM CHLORIDE 0.9% 100 ML 106 MG IV ×2 (00:07→08:59)
[2023-05-03] MEDS: IBUPROFEN 600 MG TABLET PO ×2 (00:39→20:53)
[2023-05-03] MEDS: SODIUM CHLORIDE 0.9% 1,000 ML 100 ML IV ×2 (00:41→15:31)
[2023-05-03 02:00] VITALS: TEMP 37
[2023-05-03] MEDS: AMPICILLIN/SULBACTAM 3 GM 3 GM in SODIUM CHLORIDE 0.9% 100 ML IV ×4 (04:53→22:55)
[2023-05-03 05:30] VITALS: BP 100/57; PULSE 97; RESP 21; TEMP 36.6; O2SAT 100
[2023-05-03 06:22] LABS: Add Manual Diff / Slide Review NO; Basophils Absolute Auto 0 /uL (0-100); Basophils Percent Auto 0.1 % (0-2); Eosinophils Absolute Auto 0 /uL (0-450); Eosinophils Percent Auto 0.1 % (2-4); Hematocrit 31.7 % (36-46); Hemoglobin 10.8 g/dL (12.0-16.0); Lymphocytes Absolute Auto 1100 /uL (1100-4500); Lymphocytes Percent Auto 10.2 % (25-40); Mean Corpuscular Hemoglobin 27.6 PG (26-34); Mean Corpuscular Volume 81.2 fL (80-100); Monocytes Absolute Auto 600 /uL (0-900); Monocytes Percent Auto 5.9 % (3-14); Neutrophils Absolute Auto 8800 /uL (1500-7000); Neutrophils Percent Auto 83.7 % (50-75); Platelet Count 258 X10^3/uL (150-400); Red Cell Distribution Width 14.8 % (11.6-14.8); White Blood Cell Count 10.5 X10^3/uL (4.5-11.0)
--- NOTE | 2023-05-03 07:00 | PC.NURSE ---
dmit/NOC Shift Note- Patient arrived to room with baby in sandy at 2345 from ER. Patient A&O and able to make needs known to staff. Admit questions done, physical assessment done, meds reviewed, and skin checck completed. Patient oriented to bed and bed controls, room, lights, phone, menu, bathroom, and call pro/TV remote. No complaints of pain or discomfort at this time. Patient agrees to call for assistance as needed. patient steady on feet and OK to be independent. Safety measures in place. call pro and phone within reach. Will continue to monitor.
[2023-05-03] MEDS: ACETAMINOPHEN 325 MG TABLET 650 MG PO ×3 (10:24→23:43)
--- NOTE | 2023-05-03 10:45 | CM.DANOTE ---
DCP: Patient is a 28yo F here 7 weeks with an infection/heavy bleeding. Payer: [employer] self pay PCP: Dr. Almaguer BOILER COVERER HELPER reviewed EMR. BOILER COVERER HELPER spoke with nursing staff who reported patient likely will have no needs from this team upon d/c. BOILER COVERER HELPER entered room and introduced self and role. Patient appeared A/Ox4 and was sitting up in bed drinking tea. Patient was accompanied by baby and friend in room. Patient reported that she was told she'll be on antibiotics until tomorrow and then she will go home. 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 Spouse, Umesh ([phone]), can be contacted via phone while on deployment. Additional contact is mother, Macey ([phone]) (lives in [place]). Patient gave CM team verbal permission to contact mother if needed. Patient is independent at baseline with ADLs and drives POV. She drove herself here and either is going to drive herself home, or her friend will drive her home. Patient stated she will figure out transportation with her friends. CM team will continue to follow. Plan: d/c home when medically stable. Likely tomorrow, 05/04. transport home either driving self or with friend. CM team will continue to follow closely. MARTIN Ralph Discharge Planning/Care Management CM Discharge Assessment Start: 05/03/23 10:43 Freq: Status: Active Protocol: Document 05/03/23 10:43 (Rec: 05/03/23 10:45 [id number]) Discharge Planning Assessment Assigned Public Relations Officer MARTIN Ralph DPOA/Assigned Designee Name Umesh Zafar (spouse) Contact Information [phone] Advance Directives? No History Provided By Patient,Medical Record Prior Living Arrangements Apartment/Condo Household Members spouse Type of transporation used prior to Drives own vehicle admit Independent with ADL's Yes Is patient alert and oriented? Yes Caregiver for Another Yes: Barriers to Discharge No Discharge Plan Home Transportation Arrangement either will drive self home or have friend drive her. Has baby's carseat here. Whiteboard Updated in Patient Room with Yes name and ext. # of Public Relations Officer Review Status In Process Next Review Type Continued Stay Review
[2023-05-03 14:21] VITALS: BP 99/80; PULSE 93; RESP 18; TEMP 37.4; O2SAT 98
[2023-05-03] MEDS: CLINDAMYCIN 150 MG CAPSULE 450 MG PO ×2 (15:30→20:55)
[2023-05-03 19:30] VITALS: BP 112/72; PULSE 79; RESP 20; TEMP 37.3; O2SAT 98
[2023-05-04] VITALS (10 sets, daily range): BP systolic 95–133; BP diastolic 49–81; PULSE 58–72; RESP 14–21; TEMP 35.8–36.4; O2SAT 95–99; BMI 25.0
--- NOTE | 2023-05-04 | PATH_ITS ---
[facility] Accession Number: [id number] No. of containers..01 Tissue . 01 Material submitted: . placenta - RETAINED PLACENTA . 01 Diagnosis: Retained Placenta: Portions of proliferative endometrium; negative for significant atypia. Portions of fibrinous material with scattered calcifications and possible patchy coagulative necrosis of villus structures. No viable placental tissue identified. MRV 05/09/2023 1222 Local . 01 Electronically signed: . Jessica Blackman MD, Pathologist NPI- [id number] . 01 Gross description: . The specimen is received in formalin labeled with the patient's name, , and retained placenta consists of multiple fragments of collier-brown soft tissue aggregating to 4.5 x 3.0 x 1.3 cm. No tissue is seen. Mixed Signal Design Engineer sections are filtered into a mesh bag and submitted in cassette A1. ([id number]) /MRV 05/05/2023 1258 Local . 01 Pathologist provided ICD-10: O73.1 . 01 CPT . 445743 Specimen Comment: A courtesy copy of this report has been sent to [phone] Performed at: 01 [facility] Cyt[facility] [address] [place] [address] [address] [facility], [place], [place] [id number] MD Vadim Burger MD Phone: [phone]
[2023-05-04] MEDS: SODIUM CHLORIDE 0.9% 1,000 ML 100 ML IV (03:00)
[2023-05-04] MEDS: AMPICILLIN/SULBACTAM 3 GM 3 GM in SODIUM CHLORIDE 0.9% 100 ML IV (04:33)
--- NOTE | 2023-05-04 06:39 | PC.NURSE ---
Checked patient she's asleep, NPO since midnight last dose of Tylenol was @ 2343. Will monitor.
--- NOTE | 2023-05-04 07:40 | P.HPOB_ITS ---
History of Present Illness History of Present Illness Narrative: Janny Zafar is a 28 year old female 1 para 1 with retained products of conception 7 weeks . She presented to the emergency department with fever, and chills. By ultrasound she was found to have retained products conception. She was started on antibiotics. She has received 36 hours of antibiotics. 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 number of children: 0 household members: spouse lives independently: Yes caregiver/support person: No education level: master's degree occupational status: employed pari/hoahaoism: Denominational Smoking Status: Never smoker alcohol intake: former substance use type: does not use additional social history: Reports that she feels safe with her Meds Home Medications and Allergies Home Medications Medication Instructions Recorded Confirmed Type ferrous sulfate 325 mg (65 mg 325 mg PO DAILY 60 days #60 tabs 03/15/23 05/03/23 Rx iron) tablet Allergies Allergy/AdvReac Type Severity Reaction Status Date / Time No Known Drug Allergies Allergy Verified 03/14/23 06:41 Exam Vital Signs (past 8 hours): - 05/04/23 03:25 Temperature 97.1 F L Pulse Rate 68 Respiratory Rate 21 Blood Pressure 101/66 Pulse Oximetry 98 Oxygen Flow Rate 0 Oxygen Delivery Method Room Air Oxygen Flow Rate 0 Narrative Exam Narrative: HEENT: No thyromegaly, no anterior cervical or supraclavicular lymphadenopathy. Lungs:Clear to auscultation bilaterally, no wheezes. Cardiovascular: Regular rate and rhythm, no murmurs, rubs, or gallops. Abdomen: No scars. No hepatosplenomegaly. No masses palpable. Tenderness to deep palpation External genitalia: Normal Cervix: Tender Bimanual exam: 8 Week size uterus. Mobile. Tender to palpation Extremities: No edema Objective Labs 05/03/23 05:52 05/02/23 21:05 Assessment & Plan Assessment & Plan narrative: Assessment: 28-year-old 1 para 1 with retained products of conception 7 weeks Endomyometritis Plan: Suction D&C after she has completed 24 hours of antibiotics The risks, benefits, and alternatives to the procedure were explained to the patient. The risks including bleeding, infection, and uterine perforation. She understands these risks and agrees to proceed. A full par Q was held and consent form was signed. Time Spent With Patient Time with patient: less than 30 minutes Quality VTE Deep Vein Thrombosis/Pulmonary Embolism Present on Admission: No
[2023-05-04] MEDS: LACTATED RINGERS 1,000 ML 100 ML IV (08:21)
[2023-05-04] MEDS: LACTATED RINGERS 1,000 ML 42 ML IV (09:00)
[2023-05-04] MEDS: SCOPOLAMINE 1 PATCH TOP (09:04)
--- NOTE | 2023-05-04 09:44 | PC.NURSE ---
Patient left the floor at approximately 9 a.m. for pre-op. Friend in room accompanying baby. Patient had been NPO since before midnight. VSS, afebrile this a.m.
--- NOTE | 2023-05-04 09:56 | SUR.OPER ---
Lithotomy on padded OR bed, head on pillow, arms secured on padded arm boards at <90 degrees abduction. Legs secured in padded yellow fins stirrups.
--- NOTE | 2023-05-04 10:19 | P.OP_ITS ---
Operative Date/Time/Diagnoses Date of procedure: 05/04/23 Time of procedure: 10:19 Pre-op diagnosis: Retained products of conception Endomyometritis Post-op diagnosis: same Procedure & Clinicians Procedure: Procedures Operation Date: 05/04/23 09:45 Actual Procedure Side Surgeon ozzie Suction Dilation and Curettage Judie Terry MD Indications: Retained products of conception Surgeon: Judie Terry Anesthesia Type: General (LMA) Operative Notes Findings: 9 week size anteverted uterus Piece of placenta measuring 2-1/2 x 1-1/2 cm was removed from the fundus of the uterus Closure Type: not applicable Specimen(s): other (Retained placenta) Estimated blood loss (mL): 50 Blood products transfused: none Procedure in detail: After informed consent was obtained, the patient was taken to the operating room where she was placed in the dorsal supine position. After adequate LMA general anesthesia was achieved, she was placed in the dorsal lithotomy position, and prepped and draped in the usual sterile fashion. A time-out was performed. A bivalve speculum was placed into the vagina and the anterior lip of the cervix was grasped with a single-tooth tenaculum. The cervical os was sequentially dilated until the # 8 suction curette could pass easily into the endometrial cavity. Several passes with suction revealed blood. On the third pass with suction there was a small piece of placenta stuck to the tip of the catheter jefe suring 2.5 x 1.5 cm. The suction curette was removed. Gentle sharp curettage was performed yielding minimal amount of tissue. Several more passes with suction revealed blood only. The instruments were removed from the uterus. The single-tooth tenaculum was removed from the anterior lip of the cervix. The bivalve speculum was removed from the vagina. Sponge, lap, and instrument counts were correct x2. The patient tolerated the procedure well, and was taken to PACU in stable condition. Complications: none Post-operative Condition: stable Disposition: PACU Plan for aftercare: Home after recovery
--- NOTE | 2023-05-04 10:19 | PM.PREOP ---
Pre-operative Note COVID-19 Criteria for continued procedure: Non-surgical alternatives not available or appropriate per current SOC Interval Note History & Physical reviewed/Exam performed by Physician: Yes Changes to H&P: No H&P completed within 30 days and has changed as indicated here:: 05/04/23
--- NOTE | 2023-05-04 12:33 | PC.NURSE ---
Addendum entered by Jeri De Anda R.N. 05/04/23 14:07: pt escorted via w/ch with all of her belongings, her new born and friend for discharge home with friend in private vehicle. Original Note: Patient returns at approximately 1120 from PACU. She is A&OX4, VSS,afebrile. She denies any pain. Shilpa pad in place, scant blood. She is able to ambulate in her room and void. She verbalizes wanting to discharge home and feeling recovered from procedure. Friend at bedside supportive. She acknowledges understanding of activity, medications, s/sx of infection/complication and follow up appointment.
--- NOTE | 2023-05-04 13:25 | CM.DPC ---
DCP Discharge Home Per OBGYN, pt tolerated her D&C well and medically stable to d/c home today with outpt f/u. Per RN, pt was able to ambulate independently and void and has friend bedside to provide transport home today and given d/c instructions and no concerns noted at this time. Plan: Patient to d/c home via friend POV and outpt f/u and no further SW needs at this time. MARTIN Baltazar
== END 2023-05-04 13:00 | disposition home or self-care (01) | DRG 769 ==
LOC: ED 23:10 → AC 23:16
PROVIDERS: Admitting Provider Family Medicine; Emergency Provider Emergency Medicine; Referring Provider Emergency Medicine; Visit Provider Obstetrics & Gynecology
PROC: 10D18ZZ Extraction of Products of Conception, Retained, Via Natural or Artificial Opening Endoscopic (ICD-10-PCS; CPT 58120; principal; 2023-05-04 09:45)
DX: O72.2 Delayed and secondary postpartum hemorrhage (principal); N71.9 Inflammatory disease of uterus, unspecified; Z20.822 Contact with and (suspected) exposure to COVID-19
CPT/HCPCS: 36415; 76830; 76856; 80053; 81001; 81003; 83605; 83690; 84145; 85025; 85610; 85730; 87040; 87086; 96365; 99284; J0295; J1100; J1885; J2250; J2405; J2704; J3010; S0077

== ENCOUNTER → 2023-11-15 13:53 | Outpatient (CLI) | payer OTHER, SELFPAY ==
--- NOTE | 2023-11-15 | DI.US.S_ITS ---
PROCEDURE: US OB <= 14 WEEKS FETUS INDICATIONS: RETAINED INTRAUTERINE DEVICE IN OUTSIDE/PRIOR DATING DATA: Last menstrual period (LMP): Unknown. LMP-based estimated date of delivery (GARCIA): Unknown First dating scan (date and location): 11/15/2023. Estimated date of delivery (GARCIA) from first dating scan: 07/09/2024. TECHNIQUE: Real-time scanning was performed of the fetus and maternal pelvic organs, with image documentation. COMPARISON: None. FINDINGS: Embryo: [place]-rump length 0.5 cm corresponding with a 6 week 1 day gestation. Heart rate: 113 beats per minute Intrauterine device noted located anteriorly into the left of the gestational sac Maternal organs: Ovaries left ovarian simple cyst 2.1 cm. Right ovary within normal limits. There is free fluid in the left adnexa.. IMPRESSION: Single live intrauterine corresponds with a 6 week 1 day gestation A retained intrauterine device noted positioned anterior and to the left of gestational sac. Approved by: Braden Ny M.D. on 11/15/2023 at 15:43
== END ==
PROVIDERS: Referring Provider Advanced Practice Midwife; Visit Provider Advanced Practice Midwife
DX: O26.31 Retained intrauterine contraceptive device in pregnancy, first trimester (principal); O34.81 Maternal care for other abnormalities of pelvic organs, first trimester; N83.292 Other ovarian cyst, left side; Z3A.01 Less than 8 weeks gestation of pregnancy
CPT/HCPCS: 76801; 76817

== ENCOUNTER → 2023-12-11 14:54 | Outpatient (CLI) | payer OTHER, SELFPAY ==
[2023-12-11 20:24] LABS: Urine N gonorrhoeae NOT DETECTED
[2023-12-11 20:55] LABS: Urine Chlamydia NOT DETECTED
== END ==
PROVIDERS: Visit Provider Specialist
DX: Z34.81 Encounter for supervision of other normal pregnancy, first trimester (principal); Z3A.09 9 weeks gestation of pregnancy
CPT/HCPCS: 87491; 87591

== ENCOUNTER → 2023-12-11 15:22 | Outpatient (CLI) | payer OTHER, SELFPAY ==
[2023-12-11 16:55] LABS: Add Manual Diff / Slide Review NO; Basophils Absolute Auto 0 /uL (0-100); Basophils Percent Auto 0.4 % (0-2); Eosinophils Absolute Auto 100 /uL (0-450); Eosinophils Percent Auto 0.8 % (2-4); Hematocrit 33.5 % (36-46); Hemoglobin 11.6 g/dL (12.0-16.0); Lymphocytes Absolute Auto 1700 /uL (1100-4500); Lymphocytes Percent Auto 16.5 % (25-40); Mean Corpuscular HGB Conc 34.7 % (30-36); Mean Corpuscular Hemoglobin 29.3 PG (26-34); Mean Corpuscular Volume 84.5 fL (80-100); Monocytes Absolute Auto 500 /uL (0-900); Monocytes Percent Auto 4.7 % (3-14); Neutrophils Absolute Auto 7900 /uL (1500-7000); Neutrophils Percent Auto 77.6 % (50-75); Platelet Count 289 X10^3/uL (150-400); Red Blood Cell Count 3.97 X10^6/uL (4.0-5.2); Red Cell Distribution Width 13.5 % (11.6-14.8); White Blood Cell Count 10.2 X10^3/uL (4.5-11.0)
[2023-12-11 18:49] LABS: Hepatitis B Surface Antigen NEGATIVE s/c (NEGATIVE)
[2023-12-11 19:32] LABS: HIV 1 & 2 Ab/Ag 4th Gen Combo NEGATIVE (NEGATIVE); Hep C Virus Ab w/Reflex Quant NEGATIVE s/c (NEGATIVE)
[2023-12-13 05:52] LABS: RPR Screen Non Reactive (Non Reactive)
[2023-12-13 11:36] LABS: Varicella IgG Antibody 438 index (Immune >165)
== END ==
PROVIDERS: Referring Provider Specialist; Visit Provider Specialist
DX: Z34.81 Encounter for supervision of other normal pregnancy, first trimester (principal); Z3A.09 9 weeks gestation of pregnancy
CPT/HCPCS: 36415; 80055; 86787; 86803; 86850; 86900; 86901; 87086; 87389; 87491; 87591